=== PATIENT | male | born 2000 | race Caucasian/White ===

== ENCOUNTER 2021-05-05 16:50 | Emergency (ER) | payer SELFPAY ==
[2021-05-05] MEDS ORDERED: Ketorolac 30 MG/ML SDV IM ONE (19:58)
[2021-05-05] MEDS ORDERED: Acetaminophen/HYDROcodone 325-5 MG Tab PO ONE (23:17)
== END 2021-05-05 23:37 | disposition home or self-care (01) ==
LOC: MW.ED 16:50
DX: S62.304A Unspecified fracture of fourth metacarpal bone, right hand, initial encounter for closed fracture (principal); S62.306A Unspecified fracture of fifth metacarpal bone, right hand, initial encounter for closed fracture; W22.09XA Striking against other stationary object, initial encounter
CPT/HCPCS: 29125; 73130; 96372; 99283; A9270; J1885

== ENCOUNTER 2021-12-11 20:15 | Emergency (ER) | payer SELFPAY | END 2021-12-11 21:37 | disposition home or self-care (01) | LOC: MW.ED 20:15 | DX: R20.2 Paresthesia of skin (principal); T42.4X5A Adverse effect of benzodiazepines, initial encounter; T40.415A Adverse effect of fentanyl or fentanyl analogs, initial encounter | CPT/HCPCS: 99283 ==

== ENCOUNTER 2022-01-06 17:50 | Emergency (ER) | payer SELFPAY ==
[2022-01-06] MEDS ORDERED: Sodium Chloride 0.9% 1,000 ML IV ONE (18:30)
[2022-01-06] MEDS ORDERED: Ondansetron 4 MG/2 ML SDV IVPUSH ONE (18:31)
[2022-01-06] MEDS ORDERED: LORazepam 2 MG/ML SDV IV ONE (18:33)
== END 2022-01-06 20:50 ==
LOC: MW.ED 17:50
DX: R29.0 Tetany (principal)
CPT/HCPCS: 96361; 96374; 96375; 99283; J2060; J2405; J7030

== ENCOUNTER 2022-01-10 08:00 | Emergency (ER) | payer SELFPAY | END 2022-01-10 19:45 | LOC: MW.ED 08:00 | DX: S62.306A Unspecified fracture of fifth metacarpal bone, right hand, initial encounter for closed fracture (principal); F41.9 Anxiety disorder, unspecified; R00.0 Tachycardia, unspecified; Y04.0XXA Assault by unarmed brawl or fight, initial encounter | CPT/HCPCS: 93010; 96361; 96374; 96375; 99283-25; 99284 ==

== ENCOUNTER 2022-01-23 01:18 | Emergency (ER) | payer SELFPAY | END 2022-01-23 01:44 | disposition home or self-care (01) | LOC: MW.ED 01:18 | DX: Z02.89 Encounter for other administrative examinations (principal) | CPT/HCPCS: 99283 ==